=== PATIENT | female | born 1950 | race African-American/Black ===

== ENCOUNTER → 2016-03-21 | Outpatient (CLI) | payer MEDICARE, OTHER ==
[2016-03-21 12:07] LABS: HEMATOCRIT 48.7 % (36.0-47.0); HGB HCT DIFFERENCE -0.7; MEAN CORPUSCULAR HEMOGLOBIN 28.5 pg (27.0-33.4); MEAN CORPUSCULAR HGB CONC 32.8 g/dL (32.0-36.0); MEAN CORPUSCULAR VOLUME 87 fl (80-97); RED BLOOD COUNT 5.61 10^6/uL (3.72-5.28); RED CELL DISTRIBUTION WIDTH 13.3 % (11.5-14.0)
[2016-03-21 12:11] LABS: APPEARANCE,URINE CLEAR; BILIRUBIN,URINE NEGATIVE (NEGATIVE); GLUCOSE, URINE NEGATIVE (NEGATIVE); KETONES,URINE NEGATIVE (NEGATIVE); LEUKOCYTE ESTERASE,URINE MODERATE (NEGATIVE); NITRITE,URINE NEGATIVE (NEGATIVE); PROTEIN,URINE NEGATIVE (NEGATIVE); URINE SPECIFIC GRAVITY 1.014; UROBILINOGEN,URINE NEGATIVE mg/dL (<2.0)
[2016-03-21 12:29] LABS: ANION GAP 11 (5-19); BLOOD UREA NITROGEN 17 mg/dL (7-20); CALCIUM 9.1 mg/dL (8.4-10.2); CARBON DIOXIDE 30 mmol/L (22-30); CHLORIDE 105 mmol/L (98-107); CREATININE RESULT 1.16 mg/dL (0.52-1.25); GLUCOSE 119 mg/dL (75-110); POTASSIUM 4.1 mmol/L (3.6-5.0); SODIUM 146.3 mmol/L (137-145)
== END ==
LOC: LAB 11:31
PROVIDERS: ATTEND Orthopaedic Surgery
DX: Z01.810 Encounter for preprocedural cardiovascular examination (principal); Z01.811 Encounter for preprocedural respiratory examination; Z01.818 Encounter for other preprocedural examination; Z79.899 Other long term (current) drug therapy; M75.101 Unspecified rotator cuff tear or rupture of right shoulder, not specified as traumatic
CPT/HCPCS: 36415; 71020; 80048; 81001; 85027

== ENCOUNTER 2016-04-28 09:37 | Observation (INO) | payer MEDICARE, OTHER ==
[2016-04-22 10:58] LABS: HEMATOCRIT 46.8 % (36.0-47.0); HEMOGLOBIN 15.8 g/dL (12.0-15.5); HGB HCT DIFFERENCE 0.6; MEAN CORPUSCULAR HEMOGLOBIN 28.9 pg (27.0-33.4); MEAN CORPUSCULAR HGB CONC 33.9 g/dL (32.0-36.0); MEAN CORPUSCULAR VOLUME 85 fl (80-97); RED BLOOD COUNT 5.47 10^6/uL (3.72-5.28); RED CELL DISTRIBUTION WIDTH 13.1 % (11.5-14.0)
[2016-04-22 11:23] LABS: APPEARANCE,URINE CLEAR; BILIRUBIN,URINE NEGATIVE (NEGATIVE); GLUCOSE, URINE NEGATIVE (NEGATIVE); KETONES,URINE NEGATIVE (NEGATIVE); LEUKOCYTE ESTERASE,URINE NEGATIVE (NEGATIVE); NITRITE,URINE NEGATIVE (NEGATIVE); PROTEIN,URINE NEGATIVE (NEGATIVE); URINE SPECIFIC GRAVITY 1.015; UROBILINOGEN,URINE NEGATIVE mg/dL (<2.0)
[2016-04-22 11:24] LABS: ANION GAP 9 (5-19); BLOOD UREA NITROGEN 18 mg/dL (7-20); CALCIUM 9.4 mg/dL (8.4-10.2); CARBON DIOXIDE 34 mmol/L (22-30); CHLORIDE 102 mmol/L (98-107); CREATININE RESULT 1.12 mg/dL (0.52-1.25); GLUCOSE 108 mg/dL (75-110); POTASSIUM 3.5 mmol/L (3.6-5.0); SODIUM 144.9 mmol/L (137-145)
--- NOTE | 2016-04-22 12:43 | EKG REPORT ---
SEVERITY:- ABNORMAL ECG - SINUS RHYTHM NONSPECIFIC T ABNORMALITIES, INFERIOR LEADS : Confirmed by: Rita Fenton 22-Apr-2016 12:41:27
[~2016-04-28 09:37] MED LIST: BUPIVACAINE HCL 0.25 % INJ/PF (2.5 MG/1 ML) 30 ML VIAL ONE; DEXAMETHASONE SOD PHOSPHATE INJ 4 MG/1 ML VIAL ONE; EPINEPHRINE INJ/PF 1 MG/1 ML AMPULE ONE; LIDOCAINE 0.5% INJ-PF (5 MG/ML) 50 ML SDV SUBCUT PRN; LIDOCAINE 2% INJ-PF (20 MG/ML) 10 ML AMPUL ONE; ONDANSETRON HCL INJ/PF 4 MG/2 ML SDV ONE; PHENYLEPHRINE HCL INJ/PF 10 MG/1 ML SDV ONE; SUCCINYLCHOLINE CHLORIDE INJ 200 MG/10 ML VIAL ONE
[2016-04-28] MEDS: RINGERS SOLUTION,LACTATED 1,000 ML IV PRN ×2 (10:10→20:56)
[2016-04-28] MEDS ORDERED: DEXMEDETOMIDINE INJ 80 MCG/20 ML VIAL IV ONE (11:55)
[2016-04-28] MEDS ORDERED: FENTANYL CITRATE INJ/PF 250 MCG/5 ML AMPULE ONE (11:55)
[2016-04-28] MEDS ORDERED: PROPOFOL INJ 200 MG/20 ML VIAL IV ONE (11:55)
[2016-04-28] MEDS ORDERED: MIDAZOLAM 2 MG/2 ML INJ ONE (11:55)
[2016-04-28] MEDS ORDERED: EPHEDRINE SULFATE INJ 50 MG/1 ML AMPULE ONE (11:56)
[2016-04-28] MEDS: CEFAZOLIN 2 GM/D5W RTU 2 GM/50 ML RTUPB IV PRN ×2 (12:50→20:56)
[2016-04-28] MEDS ORDERED: DIPHENHYDRAMINE HCL 50 MG/ML VIAL IV PRN (13:08)
[2016-04-28] MEDS ORDERED: MEPERIDINE HCL/PF INJ 25 MG/1 ML DISP.SYRIN IV PRN (13:08)
[2016-04-28] MEDS ORDERED: FENTANYL CITRATE INJ/PF 100 MCG/2 ML AMPUL IV PRN ×3 (13:08)
[2016-04-28] MEDS ORDERED: PROMETHAZINE HCL INJ 25 MG/1 ML VIAL IV PRN ×2 (13:08)
[2016-04-28] MEDS ORDERED: MORPHINE SULFATE 10 MG/ML INJ IV PRN (13:08)
--- NOTE | 2016-04-28 15:54 | Operative Report ---
Operative Report DATE OF SURGERY: 04/28/16 PREOPERATIVE DIAGNOSIS: Right rotator cuff tear and SLAP tear POSTOPERATIVE DIAGNOSIS: Right large rotator cuff tear and tear of the long head of the biceps OPERATION: Right shoulder arthroscopic rotator cuff repair and arthroscopic biceps tenodesis SURGEON: DELIA POLK ANESTHESIA: GA TISSUE REMOVED OR ALTERED: None COMPLICATIONS: None ESTIMATED BLOOD LOSS: 20 mL INTRAOPERATIVE FINDINGS: As above PROCEDURE: IMPLANTS: Arthrex bio composite corkscrews 2, bio composite tenodesis screw, bio composite swivel locks 2 DESCRIPTION OF PROCEDURE: Patient was brought to the operating room placed in supine position. After successfully induced and intubated the patient patient was placed in the beachchair position the head and endotracheal tube was secured appropriately. The right shoulder shoulder was prepped and draped in a normal surgical fashion. A timeout was done identifying the right shoulder shoulder as the correct site. After inflating the glenohumeral joint with sterile saline solution an 11 blade was used to establish the posterior portal. The arthroscope was introduced and return of fluid was seen showing that we successfully penetrated the glenohumeral joint. With the use of spinal needle we're able to eleanor the anterior portal and using an 11 blade able to establish anterior portal. A cannula was introduced through the anterior portal. At this point diagnostic scope was done. Patient had a torn long head of the biceps that had scarred down to the torn rotator cuff tear. Patient had a full thickness tear from the supraspinatus all way to the infraspinatus tendon. A lateral portal was established 11 blade. 4.0mm shaver was introduced and was used to prepare the tear and the bone for preparation of anchor placement. Once I was satisfied with the preparation I proceeded to do a percutaneous incision adjacent to the acromion and placed my 2 anchors. I used at all and placed a hole both anterior and posterior at the articular margin. I was able to place my 2 anchors to the same protecting his hole in the anchors had good purchase and did not back out when pulled on. I then redirected my scope into the subacromial space. I did a formal bursectomy using radiofrequency ablator and shaver. I released the long head of biceps from the rotator cuff tear and pulled it through an accessory portal that I made between the anterior and lateral incision did have done previously. Through this portal I used a fiber loop and able to suture the distal tip of the biceps successfully. It measured a 6 mm tendon so I proceeded to ream a 7 mm hole and placed a 7 mm screw after seating the biceps into the hole. The interference screw had good purchase and the biceps tendon was secured in the predrilled hole. I used a arthroscopic knot pusher to then do half hitches and secure the strands over the biceps tenodesis screw. At this point I turned my attention to the rotator cuff tear. Sutures were passed through the anterior portal for proper suture management. With the use of the scorpion and I proceeded to pass the sutures through the rotator cuff tendon with proper suture management was able to pass the strands either through percutaneous hole or the anterior portal. Once I was satisfied with placement of all my sutures I then proceeded to do my arthroscopic knots. At this point the strands were used to do our lateral row. Bicomposite show out was used and the lateral aspect of the humerus was then cleaned off with a shaver and electrocautery. Once identified once I was replacement I proceeded to use my awl to do my hole. This this point the sutures were adequately tensioned and subluxed for inserted and secured securing and increasing the footprint of the rotator cuff repair. Remaining strands were cut with the arthroscopic cutter. I repeated this procedure with a second swivel lock and had nice lateral row fixation. Final pictures were taking showing my repair. At this point fluid from the shoulder was removed camera and instruments were all removed. I proceeded to close my portal sites with 3-0 nylon. Xeroform 4 x 4 dressing followed by ABDs pads and Medipore tape was applied. Patient was placed in a sling and returned to supine position where he was successfully extubated and taken to PACU in stable condition.
--- NOTE | 2016-04-28 15:56 | PDOC DISCHARGE SUMMARY ---
Discharge Summary (SDC) - Discharge Final Diagnosis: Status post right shoulder arthroscopic rotator cuff repair and arthroscopic biceps tenodesis Date of Surgery: 04/28/16 Discharge Date: 04/28/16 Condition: Good Treatment or Instructions: Patient is instructed to follow up in 10-14 days. Patient instructed to remove dressing in 4 days then can shower and apply Band- Aids as needed. Patient to wear sling for comfort but okay to remove for shower and pendulum exercises. Pendulum exercises are instructed to be done 3 times a day ideally with breakfast, lunch, dinners and showers. Patient instructed to call if there is any signs of redness or drainage fevers or chills. Prescriptions: Ondansetron HCl [Zofran 4 mg Tablet] 1 - 2 tab PO Q8H PRN #30 tablet PRN Reason: Oxycodone HCl/Acetaminophen [Percocet 5-325 mg Tablet] 1 - 2 tab PO ASDIR PRN # 60 tablet PRN Reason: Discharge Diet: As Tolerated Respiratory Treatments at Home: Deep Breathing/Coughing Discharge Activity: No Driving, No Lifting/Push/Pulling, Walk Frequently Home Care Assistance: None Needed Report the Following to Your Physician Immediately: Shortness of Breath, Vomiting, Increase in Pain, Fever over 101 Degrees, Unusual Bleeding, Redness, Drainage-Yellow, Drainage-Green, Drainage-Foul Smelling
[2016-04-28] MEDS: FENTANYL CITRATE INJ/PF 100 MCG/2 ML AMPUL ONE ×2 (15:59→16:04)
[2016-04-28] MEDS ORDERED: KETOROLAC TROMETHAMINE INJ/PF 30 MG/1 ML SDV ONE (16:27)
[2016-04-28] MEDS ORDERED: ACETAMINOPHEN 100 ML IV ONE (16:27)
[2016-04-28] MEDS: OXYCODONE-ACETAMINOPHEN 5-325 MG TABLET PO PRN ×2 (16:55→20:58)
[2016-04-28] MEDS ORDERED: OXYCODONE-ACETAMINOPHEN 5-325 MG TABLET ONE (16:55)
[2016-04-28] MEDS ORDERED: HYDROMORPHONE HCL INJ/PF 2 MG/ML AMPULE ONE (17:21)
[2016-04-29] MEDS ORDERED: OXYCODONE-ACETAMINOPHEN 5-325 MG TABLET PO PRN ×2 (04:23)
[2016-04-29 08:28] VITALS: BP 135/60
== END 2016-04-29 09:35 | disposition home or self-care (01) ==
LOC: OROUT 09:37 → 2N 18:33
PROVIDERS: ADMIT Orthopaedic Surgery; ATTEND Orthopaedic Surgery
PROC: 0LS14ZZ Reposition Right Shoulder Tendon, Percutaneous Endoscopic Approach (ICD-10-PCS; 2016-04-28)
PROC: 0LQ14ZZ Repair Right Shoulder Tendon, Percutaneous Endoscopic Approach (ICD-10-PCS; principal; 2016-04-28 11:45)
DX: M75.121 Complete rotator cuff tear or rupture of right shoulder, not specified as traumatic (principal); S46.111A Strain of muscle, fascia and tendon of long head of biceps, right arm, initial encounter; I10 Essential (primary) hypertension; Z79.899 Other long term (current) drug therapy
CPT/HCPCS: 93005; 36415 ×2; 84132; 85027; 80048; 81001; 93010; 29827; 29828; G0378 ×2; G0379; C1713 ×3; J2250; J1100; J3490 ×2; J0171; J3010 ×2; J1885; A9270 ×2; J1170; J2370; J0330; J2405; J2704; J0690; J0131; 1630

== ENCOUNTER → 2016-08-31 | Outpatient (CLI) | payer MEDICARE, OTHER ==
--- NOTE | 2016-08-31 14:59 | WOMENS IMAGING REPORT ---
EXAM DESCRIPTION: BILAT SCREENING MAMMO W/CAD COMPLETED DATE/TIME: 08/31/2016 12:34 pm REASON FOR STUDY: Z12.31, ROUTINE SCREENING MAMMO Z12.31 ENCNTR SCREEN MAMMOGRAM FOR MALIGNANT NEOP LASM OF ADORE COMPARISON: No previous available TECHNIQUE: Standard craniocaudal and mediolateral oblique views of each breast recorded using digita l acquisition. LIMITATIONS: None. FINDINGS: No masses, calcifications or architectural distortion. No areas of suspicion. Read with the assistance of CAD. .[facility] - R2 Cenova Version 1.3 .[facility] - R2 Cenova Version 1.3 .[facility] - R2 Cenova Version 2.4 .[facility] [place] Cenova Version 2.4 .[facility] - R2 Team Guide Version 9.2 IMPRESSION: NORMAL MAMMOGRAM. BIRADS 1. BREAST DENSITY: b. There are scattered areas of fibroglandular density. BIRAD: 1 NEGATIVE RECOMMENDATION: ROUTINE SCREENING COMMENT: The patient has been notified of the results by letter per SA requirements. Additional no tification policies are in place for contacting patient with suspicious or incomplete findings. Quality ID #225: The [employer] recommends an annual screening mammogram for women aged 40 years or over. This facility utilizes a reminder system to ensure that all patients receive reminder letters, and/or direct phone calls for appointments. This includes reminders for routine scr eening mammograms, diagnostic mammograms, or other Breast Imaging Interventions when appropriate. Th is patient will be placed in the appropriate reminder system. The [employer] (ACR) has developed recommendations for screening MRI of the breast s in certain patient populations, to be used in conjunction with mammography. Breast MRI surveillanc e may be appropriate for women with more than 20% lifetime risk of developing breast cancer as deter mined by genetic testing, significant family history of the disease, or history of mantle radiation f or Hodgkins Disease. ACR Practice Guidelines 2008. TECHNICAL DOCUMENTATION: FINDING NUMBER: (1) ASSESSMENT: (1) JOB ID: [id number] [employer]- All Rights Reserved
== END ==
LOC: WI 11:15
PROVIDERS: ATTEND Family Medicine
DX: Z12.31 Encounter for screening mammogram for malignant neoplasm of breast (principal)
CPT/HCPCS: 77067; G0202

== ENCOUNTER 2017-07-20 07:52 | Inpatient (IN) | payer MEDICARE, OTHER ==
[2017-07-13 13:22] LABS: APPEARANCE,URINE CLEAR; BILIRUBIN,URINE NEGATIVE (NEGATIVE); COLOR,URINE YELLOW; GLUCOSE, URINE NEGATIVE (NEGATIVE); KETONES,URINE NEGATIVE (NEGATIVE); LEUKOCYTE ESTERASE,URINE SMALL (NEGATIVE); NITRITE,URINE NEGATIVE (NEGATIVE); PROTEIN,URINE NEGATIVE (NEGATIVE); URINE SPECIFIC GRAVITY 1.016; UROBILINOGEN,URINE NEGATIVE mg/dL (<2.0)
[~2017-07-20 07:52] MED LIST changes: -BUPIVACAINE HCL 0.25 % INJ/PF (2.5 MG/1 ML) 30 ML VIAL ONE; +BUPIVACAINE INJ/PF LIPOSOME/PF 266 MG/20 ML SDV INJ PRN; +BUPIVACAINE INJ/PF LIPOSOME/PF 266 MG/20 ML SDV ONE; +CEFAZOLIN SODIUM 2 GM in DEXTROSE 5%-WATER 100 ML IV PRN; -DEXAMETHASONE SOD PHOSPHATE INJ 4 MG/1 ML VIAL ONE; -EPINEPHRINE INJ/PF 1 MG/1 ML AMPULE ONE; +IBUPROFEN 800 MG in NORMAL SALINE 250 ML IV PRN; +LACTATED RINGERS 1000 ML IV PRN; +LANSOPRAZOLE 15 MG TAB.RAP.DR PO PRN; -LIDOCAINE 2% INJ-PF (20 MG/ML) 10 ML AMPUL ONE; -ONDANSETRON HCL INJ/PF 4 MG/2 ML SDV ONE; +OXYCODONE HCL SR 10 MG TABLET PO PRN; -PHENYLEPHRINE HCL INJ/PF 10 MG/1 ML SDV ONE; -SUCCINYLCHOLINE CHLORIDE INJ 200 MG/10 ML VIAL ONE; +THROMBIN (BOVINE) 5000 UNIT EPITAXIS KIT ONE; +THROMBIN (BOVINE) TOPICAL 20000 UNIT VIAL ONE
[2017-07-20] MEDS ORDERED: FENTANYL CITRATE INJ/PF 250 MCG/5 ML AMPULE ONE (10:57)
[2017-07-20] MEDS ORDERED: MIDAZOLAM 2 MG/2 ML INJ ONE (10:57)
[2017-07-20] MEDS ORDERED: ONDANSETRON HCL INJ/PF 4 MG/2 ML SDV ONE (10:57)
[2017-07-20] MEDS ORDERED: LIDOCAINE 2% INJ-PF (20 MG/ML) 10 ML AMPUL ONE (10:57)
[2017-07-20] MEDS ORDERED: PROPOFOL INJ 200 MG/20 ML VIAL IV ONE (10:58)
[2017-07-20] MEDS ORDERED: DIPHENHYDRAMINE HCL 50 MG/ML VIAL IV PRN (11:50)
[2017-07-20] MEDS ORDERED: MEPERIDINE HCL/PF INJ 25 MG/1 ML DISP.SYRIN IV PRN (11:50)
[2017-07-20] MEDS ORDERED: MORPHINE SULFATE 10 MG/ML INJ IV PRN (11:50)
[2017-07-20] MEDS ORDERED: FENTANYL CITRATE INJ/PF 100 MCG/2 ML AMPUL IV PRN ×3 (11:50)
[2017-07-20] MEDS ORDERED: PROMETHAZINE HCL INJ 25 MG/1 ML VIAL IV PRN ×2 (11:50)
[2017-07-20] MEDS ORDERED: ONDANSETRON HCL INJ/PF 4 MG/2 ML SDV IV PRN (13:46)
[2017-07-20] MEDS ORDERED: MAG HYDROX/AL HYDROX/SIMETH SUSP 30 ML UDCUP PO PRN (13:46)
[2017-07-20] MEDS ORDERED: RINGERS SOLUTION,LACTATED 1,000 ML IV PRN (13:46)
--- NOTE | 2017-07-20 14:18 | Operative Report ---
Operative Report DATE OF SURGERY: 07/20/17 PREOPERATIVE DIAGNOSIS: Right knee degenerative joint disease POSTOPERATIVE DIAGNOSIS: Same OPERATION: Right total knee arthroplasty SURGEON: DELIA POLK ANESTHESIA: GA TISSUE REMOVED OR ALTERED: Bone cuts COMPLICATIONS: None ESTIMATED BLOOD LOSS: 50 mL INTRAOPERATIVE FINDINGS: As above PROCEDURE: Patient was brought to the operating room where she was induced and intubated in supine position. Thigh tourniquet was applied to the right lower extremity. Right lower extremity was prepped and draped in a normal sterile surgical fashion. Extremity was placed in a linn. Timeout was done identifying the right knee is a correct site. At this point Esmarch was used to exsanguinate the extremity and the tourniquet was inflated at 320 mmHg. The leg was placed in the linn and a midline incision was done over the knee. Dissection was taken down through subcutaneous tissue all way down to the quadriceps tendon and extensor mechanism and patella. A medial parapatellar approach was done to the knee. The patella was everted and the knee was flexed and we proceeded to then resect the medial lateral meniscus as well as the fat pad. ACL and PCL was also resected. A medial release was done and this allowed to sublux the tibia anteriorly. Drill was used to drill the canal and the tibia and the intramedullary guide was applied. Once it was pinned and 2 mm were measured off of the low side of the appendage and proceeded to do our initial cut. This was resected and removed and we proceeded to turn our attention to the femur where we proceeded to drill and place our intramedullary guide as well. 8 mm were cut from the distal femur. We removed the guide and proceeded to measure and go with a 4 mm size 4-in-1 cutting block. We were able to do our 4 cuts successfully and trialed a size 4 femur right which fit nicely. We proceeded to use a 4 sized tibia with a 9 mm spacer and had difficulty reducing so we then proceeded to resect another 2 mm off the tibia by reapplying the guide and taking 2 more millimeters. Another trial was attempted at this point were able to reduce it and showed good placement and fixation. Valgus and varus stressing shows stable knee ligaments. We marked the a the knee and rotational component of the tibial tray. We remove the implants and then proceeded to do our patella resection. We measured it to be 20 mm so we resected 8 mm of the patella. Left 12 mm after and measured it to confirm it. We used a 29 mm patella and drilled the peg holes in the bone. Trial components were placed and tracking was decent with no lateral subluxation. Muscle satisfied with the trial components I removed these and then did copious irrigation with pulse lavage. Cement was mixed and the actual final components were opened. We proceeded to prepare the tibial tray and did the keel portion of it. Placed my bone plugs in the canals to minimize bone marrow bleeding. Cemented the tibial tray and remove the excess cement. I then cemented the femoral component and also removed the excess cement and placed a trial spacer. I then was able to cement the patella button and remove the excess cement. Range of motion after hardening of the cement showed to be intact and no loosening. Any extra cement was then removed with an osteotome and hammer. We proceeded to place the final 9 mm polyethylene spacer and locked it in secured it in the appropriate place. Proceeded to Place Exparel on the peripheral aspect of the knee and posterior knee. Reapproximated and closed the capsule and reapproximated the patellar tendon and quadriceps tendon using #1 Vicryl suture. Thrombin was injected also. Simultaneous tissue was closed with 0 Vicryl and 2-0 Vicryl for dermis. The skin was closed with subcuticular running stitch. Steri-Strips were applied and then dressing was applied and the tourniquet was let down at 120 minutes. Drapes were removed and the patient was then extubated and sent to PACU in stable condition Implant size: right femur size 4 with a size 4 tibial tray and a 9 mm polyethylene spacer and a 29 mm patellar button
--- NOTE | 2017-07-20 14:57 | RADIOLOGY REPORT (SQ) ---
EXAM DESCRIPTION: KNEE RIGHT 2 VIEWS COMPLETED DATE/TIME: 07/20/2017 2:24 pm REASON FOR STUDY: Post OP -Long Cassette in PACU M17.11 UNILATERAL PRIMARY OSTEOARTHRITIS, RIGHT KN EE COMPARISON: None. NUMBER OF VIEWS: 2 view(s). TECHNIQUE: Digital radiographic images of the right knee post-procedure. LIMITATIONS: None. FINDINGS: BONES: No worrisome or unexpected findings post-procedure. DEVICE: Patient is status post right total knee replacement. The prosthesis appears well seated in t he distal femur and proximal tibia in the projections obtained SOFT TISSUES: No worrisome findings. Expected postoperative soft tissue changes. IMPRESSION: SATISFACTORY POSTOPERATIVE RIGHT KNEE. TECHNICAL DOCUMENTATION: JOB ID: [id number] [employer]- All Rights Reserved Reading location - IP/workstation name: [email or web address]
[2017-07-20] MEDS ORDERED: EPHEDRINE SULFATE INJ 50 MG/1 ML AMPULE ONE (15:16)
[2017-07-20] MEDS: HYDROCODONE/ACETAMINOPHEN 5-325 MG TABLET PO PRN ×2 (16:04→22:10)
--- NOTE | 2017-07-20 16:59 | Physician Advisory Note ---
Physician Advisor ProgressNote .: [facility] have reviewed [facility] medical record for this patient. Physician Advisor Statement: Status: Pt with obesity (BMI 40.1), prior Rt rotator cuff repair, HTN, gout, anxiety, who per nurse history has been limited "quite a lot" with vigorous activities & walking >1 mile, having s"ome difficulty" with 1 flight stairs, lifting/carrying groceries, bending/kneeling/stooping, but per H&P has a "normal " gait and still has little difficulty with chores like vacuuming or yardwork. - Unless attending documents a definite pre-op expectation of patient needing at least 2 MNs of post-op hospitalization, with reasons, this patient should be OUTPATIENT status until she proves she cannot go home on POD #1. - ADDENDUM at 5:22PM: Pt only able to ambulate 3-4 side steps w/PT on POD #0, with lethargy & impaired sitting/standing balance, lightheadedness/nausea. Therefore, with pt not progressing well with post-op mobility, highly unlikely to be safe for d/c home POD #1 - appropriate for INpatient status. Surgical necessity: What still needs to be documented to support need for surgery, per CMS guidelines: 1. Pain or functional disability from injury due to trauma or arthritis of the joint INTERFERES WITH these ADLs (Choose ALL that apply, give details): A. Standing B. Walking (H&P states pain worsens with walking, but that her gait is "normal" ...) C. Bathing D. Cooking E. Squatting F. Climbing stairs G. Difficulty getting up when seated a long time 2. Radiologic findings pre-op of this knee include (Choose ALL that apply, or provide a copy of the prior x-ray report): A. Subchondral cysts B. Subchondral sclerosis C. Periarticular osteophytes D. Joint space narrowing / endstage joint disease E. Joint subluxation F. AVN / osteonecrosis 3. What nonsurgical or conservative options have been tried (Choose ALL that apply): A. How long has pt tried [id number] tid? How long tramadol 50mg q6h? - Any other NSAIDS or Analgesics? (What, how much, & for how long?, or not tolerated due to ) B. How many times has she tried therapeutic injections? C. Has she used any PT? (or unable to tolerate PT due to ) D. Has she tried Assistive device use (cane, walker, brace) What? How long ? E. Flexibility and Muscle Strengthening exercises? (can be a home exercise program) F. Weight loss attempts ? - describe VS: G. 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 The above treatments have not proven successful, & this patient continues with (Choose ALL that apply): A. Pain in joint at rest (pain rating scale: __/10) B. Pain in joint with activity (pain rating scale: __/10) C. Pain in joint with weight bearing (pain rating scale: __/10) Thanks! CK
[2017-07-20] MEDS ORDERED: (PENDING PHARMACY ID) (Clonidine Hcl [Clonidine Hcl Er] 0.1 MG) PO SCH ×2 (18:00)
[2017-07-20] MEDS: RIVAROXABAN 10 MG TABLET PO SCH (18:26)
[2017-07-20] MEDS: CLONIDINE HCL 0.1 MG TABLET PO SCH (18:28)
[2017-07-20] MEDS: SENNOSIDES/DOCUSATE 8.6-50 MG 1 EACH TABLET PO SCH (18:29)
[2017-07-21] MEDS ORDERED: VANCOMYCIN HCL 1,000 MG in DEXTROSE 5%-WATER 250 ML IV ONE (01:46)
[2017-07-21] MEDS: HYDROCODONE/ACETAMINOPHEN 5-325 MG TABLET PO PRN ×2 (04:40→09:05)
[2017-07-21] MEDS: CLONIDINE HCL 0.1 MG TABLET PO SCH ×2 (05:59→17:04)
[2017-07-21 06:07] LABS: HEMOGLOBIN 12.4 g/dL (12.0-15.5); MEAN CORPUSCULAR HEMOGLOBIN 28.8 pg (27.0-33.4); MEAN CORPUSCULAR HGB CONC 33.5 g/dL (32.0-36.0); MEAN CORPUSCULAR VOLUME 86 fl (80-97); PLATELET COUNT 158 10^3/uL (150-450); RED CELL DISTRIBUTION WIDTH 13.2 % (11.5-14.0); WHITE BLOOD COUNT 14.9 10^3/uL (4.0-10.5)
[2017-07-21 06:29] LABS: ANION GAP 15 (5-19); BLOOD UREA NITROGEN 17 mg/dL (7-20); CALCIUM 8.6 mg/dL (8.4-10.2); CARBON DIOXIDE 30 mmol/L (22-30); CHLORIDE 99 mmol/L (98-107); GLUCOSE 162 mg/dL (75-110); SODIUM 143.5 mmol/L (137-145)
[2017-07-21] MEDS: PRENATAL VITAMIN W DHA CAPSULE PO SCH (09:04)
[2017-07-21] MEDS: TRIAMTERENE/HYDROCHLOROTHIAZIDE 37.5-25 MG TABLET PO SCH (09:05)
[2017-07-21] MEDS: SENNOSIDES/DOCUSATE 8.6-50 MG 1 EACH TABLET PO SCH ×2 (09:05→17:04)
[2017-07-21] MEDS: LOSARTAN POTASSIUM 50 MG TABLET PO SCH (09:05)
[2017-07-21] MEDS ORDERED: (PENDING PHARMACY ID) (Triamterene/Hydrochlorothiazid [Triamterene-Hctz 37.5-25 Mg Cp] 1 C PO SCH (10:00)
[2017-07-21] MEDS ORDERED: (PENDING PHARMACY ID) (Losartan Potassium [Losartan Potassium] 100 MG) PO SCH (10:00)
[2017-07-21] MEDS ORDERED: LOSARTAN POTASSIUM 50 MG TABLET PO SCH (10:00)
--- NOTE | 2017-07-21 12:49 | PDOC PROGRESS REPORT ---
Subjective Progress Note for:: 07/21/17 Subjective:: Patient worked with physical therapy. Complains of pain but had no issues overnight. Reason For Visit: M17.11 UNILATERAL PRIMARY OSTEOARTHRITIS, RIGHT KN Physical Exam Vital Signs: Temp Pulse Resp BP Pulse Ox 37.2 C 105 H 19 131/60 H 96 07/21/17 11:29 07/21/17 11:29 07/21/17 11:29 07/21/17 11:29 07/21/17 11:29 Intake & Output 07/20/17 07/21/17 07/22/17 06:59 06:59 06:59 Intake Total 4614 Output Total 1775 Balance 2839 Weight 99.34 kg General appearance: PRESENT: no acute distress Head exam: PRESENT: atraumatic Adult Front & Back Image: 1 - Right knee dressing is dry clean and intact. Only can do 0 of extension to about 60 of flexion. Neurovascular intact distally. No calf pain or swelling or redness. Results Laboratory Results: 07/21/17 04:54 07/21/17 04:47 07/21/17 07/21/17 04:47 04:54 WBC 14.9 H RBC 4.30 Hgb 12.4 Hct 37.0 MCV 86 MCH 28.8 MCHC 33.5 RDW 13.2 Plt Count 158 Sodium 143.5 Potassium 4.0 Chloride 99 Carbon Dioxide 30 Anion Gap 15 BUN 17 Creatinine 1.23 Est GFR ( Amer) 53 L Est GFR (Non-Af Amer) 44 L Glucose 162 H Calcium 8.6 Impressions: Knee X-Ray 07/20/17 13:49 IMPRESSION: SATISFACTORY POSTOPERATIVE RIGHT KNEE. Status: Image reviewed by me Assessment & Plan - Diagnosis (1) Total knee replacement status Qualifiers: Laterality: right Qualified Code(s): Z96.651 - Presence of right artificial knee joint Is this a current diagnosis for this admission?: Yes Plan: Patient is postop day 1 from right total knee arthroplasty. Patient is continued working with physical therapy and weight-bear as tolerated. Encouraged to work on range of motion exercises. Prescriptions have been left in the chart for Derrick Saxena Kaleigh as well as a standard walker and a bedside commode for discharge tomorrow. Anticipate discharge tomorrow or no later than Monday unless any other medical issues occurred. follow-up in 10-14 days
[2017-07-21] MEDS: RIVAROXABAN 10 MG TABLET PO SCH (17:05)
[2017-07-22] MEDS: CLONIDINE HCL 0.1 MG TABLET PO SCH ×2 (06:10→17:27)
[2017-07-22 06:27] LABS: HEMATOCRIT 33.3 % (36.0-47.0); HEMOGLOBIN 11.2 g/dL (12.0-15.5); MEAN CORPUSCULAR HEMOGLOBIN 28.8 pg (27.0-33.4); MEAN CORPUSCULAR HGB CONC 33.5 g/dL (32.0-36.0); MEAN CORPUSCULAR VOLUME 86 fl (80-97); PLATELET COUNT 134 10^3/uL (150-450); RED BLOOD COUNT 3.88 10^6/uL (3.72-5.28); RED CELL DISTRIBUTION WIDTH 12.6 % (11.5-14.0); WHITE BLOOD COUNT 18.7 10^3/uL (4.0-10.5)
[2017-07-22] MEDS: ACETAMINOPHEN 325 MG TABLET PO PRN ×2 (07:50→20:56)
[2017-07-22] MEDS: PRENATAL VITAMIN W DHA CAPSULE PO SCH (09:36)
[2017-07-22] MEDS: TRIAMTERENE/HYDROCHLOROTHIAZIDE 37.5-25 MG TABLET PO SCH (09:36)
[2017-07-22] MEDS: SENNOSIDES/DOCUSATE 8.6-50 MG 1 EACH TABLET PO SCH ×2 (09:36→17:27)
[2017-07-22] MEDS: LOSARTAN POTASSIUM 50 MG TABLET PO SCH (09:36)
[2017-07-22 13:58] LABS: APPEARANCE,URINE CLEAR; BILIRUBIN,URINE NEGATIVE (NEGATIVE); COLOR,URINE YELLOW; GLUCOSE, URINE NEGATIVE (NEGATIVE); KETONES,URINE NEGATIVE (NEGATIVE); LEUKOCYTE ESTERASE,URINE NEGATIVE (NEGATIVE); NITRITE,URINE NEGATIVE (NEGATIVE); PROTEIN,URINE NEGATIVE (NEGATIVE); URINE SPECIFIC GRAVITY 1.008; UROBILINOGEN,URINE NEGATIVE mg/dL (<2.0)
[2017-07-22] MEDS: RIVAROXABAN 10 MG TABLET PO SCH (16:09)
--- NOTE | 2017-07-22 16:15 | PDOC PROGRESS REPORT ---
Subjective Progress Note for:: 07/22/17 Subjective:: Patient states she has been doing well does have pain in her right knee. Otherwise verbalizes no complaints. Denies chest pain shortness of breath. Denies urinary symptoms. Was febrile this morning but denies fever chills or sweats. Reason For Visit: M17.11 UNILATERAL PRIMARY OSTEOARTHRITIS, RIGHT KN Physical Exam Vital Signs: Temp Pulse Resp BP Pulse Ox 99.4 F 115 H 18 107/73 92 07/22/17 12:00 07/22/17 12:00 07/22/17 12:00 07/22/17 12:00 07/22/17 12:00 Intake & Output 07/21/17 07/22/17 07/23/17 06:59 06:59 06:59 Intake Total 4614 1177 Output Total 1775 1000 Balance 2839 177 Weight 99.34 kg Musculoskeletal exam: PRESENT: other - Right knee: Ricardo bandage removed today. Moderate effusion and ecchymosis. No erythema or drainage. No calf tenderness. Negative Homans. Intact plantar flexion/dorsiflexion. No sensory deficits. Dorsalis pedis pulse 2+. Results Laboratory Results: 07/22/17 05:55 07/21/17 04:47 07/22/17 07/22/17 05:55 13:30 WBC 18.7 H RBC 3.88 Hgb 11.2 L Hct 33.3 L MCV 86 MCH 28.8 MCHC 33.5 RDW 12.6 Plt Count 134 L Urine Color YELLOW Urine Appearance CLEAR Urine pH 6.0 Ur Specific [place] 1.008 Urine Protein NEGATIVE Urine Glucose (UA) NEGATIVE Urine Ketones NEGATIVE Urine Blood SMALL H Urine Nitrite NEGATIVE Ur Leukocyte Esterase NEGATIVE Urine WBC (Auto) 3 Urine RBC (Auto) 1 Impressions: Knee X-Ray 07/20/17 13:49 IMPRESSION: SATISFACTORY POSTOPERATIVE RIGHT KNEE. Assessment & Plan - Diagnosis (1) Total knee replacement status Qualifiers: Laterality: right Qualified Code(s): Z96.651 - Presence of right artificial knee joint Is this a current diagnosis for this admission?: Yes Plan: Postop day #2 status post right total knee arthroplasty #1 postoperative fever: UA has been negative there is also evidence of leukocytosis but no definitive source. Patient verbalizes no complaints to indicate a possible source. Have encouraged ISP #2 Xarelto for DVT prophylaxis #3 physical therapy #4 anticipate discharge on 07/23/17 pending improved leukocytosis and postoperative fever.
[2017-07-22] MEDS ORDERED: ROCURONIUM BROMIDE INJ 50 MG/5 ML VIAL IV ONE (21:22)
[2017-07-23 06:35] LABS: HEMATOCRIT 31.9 % (36.0-47.0); HEMOGLOBIN 10.8 g/dL (12.0-15.5); MEAN CORPUSCULAR HEMOGLOBIN 29.2 pg (27.0-33.4); MEAN CORPUSCULAR HGB CONC 33.8 g/dL (32.0-36.0); MEAN CORPUSCULAR VOLUME 86 fl (80-97); PLATELET COUNT 152 10^3/uL (150-450); RED BLOOD COUNT 3.69 10^6/uL (3.72-5.28); RED CELL DISTRIBUTION WIDTH 12.7 % (11.5-14.0); WHITE BLOOD COUNT 17.2 10^3/uL (4.0-10.5)
[2017-07-23] MEDS: CLONIDINE HCL 0.1 MG TABLET PO SCH ×2 (06:45→17:59)
[2017-07-23] MEDS: PRENATAL VITAMIN W DHA CAPSULE PO SCH (09:18)
[2017-07-23] MEDS: TRIAMTERENE/HYDROCHLOROTHIAZIDE 37.5-25 MG TABLET PO SCH (09:18)
[2017-07-23] MEDS: LOSARTAN POTASSIUM 50 MG TABLET PO SCH (09:18)
[2017-07-23] MEDS: SENNOSIDES/DOCUSATE 8.6-50 MG 1 EACH TABLET PO SCH ×2 (09:19→17:59)
[2017-07-23] MEDS: HYDROCODONE/ACETAMINOPHEN 5-325 MG TABLET PO PRN ×2 (10:49→15:10)
--- NOTE | 2017-07-23 13:24 | PDOC PROGRESS REPORT ---
Subjective Progress Note for:: 07/23/17 Subjective:: Patient states she has been doing well, does note increase pain in her right knee. Otherwise verbalizes no complaints. Denies chest pain shortness of breath. Denies urinary symptoms. Was febrile last evening but has been afebrile since denies chills/sweats. Reason For Visit: M17.11 UNILATERAL PRIMARY OSTEOARTHRITIS, RIGHT KN Physical Exam Vital Signs: Temp Pulse Resp BP Pulse Ox 98.7 F 99 16 114/49 L 90 L 07/23/17 12:01 07/23/17 12:01 07/23/17 12:01 07/23/17 12:01 07/23/17 12:01 Intake & Output 07/22/17 07/23/17 07/24/17 06:59 06:59 06:59 Intake Total 1177 1240 Output Total 1000 700 Balance 177 540 Musculoskeletal exam: PRESENT: other - Right Knee: incision c/d/i. Small clear blister along the distal/medial aspect. Moderative effusion. No erythema /drainage. +calf tenderness. DP2/4 Results Laboratory Results: 07/23/17 06:06 07/21/17 04:47 07/22/17 07/23/17 13:30 06:06 WBC 17.2 H RBC 3.69 L Hgb 10.8 L Hct 31.9 L MCV 86 MCH 29.2 MCHC 33.8 RDW 12.7 Plt Count 152 Urine Color YELLOW Urine Appearance CLEAR Urine pH 6.0 Ur Specific [place] 1.008 Urine Protein NEGATIVE Urine Glucose (UA) NEGATIVE Urine Ketones NEGATIVE Urine Blood SMALL H Urine Nitrite NEGATIVE Ur Leukocyte Esterase NEGATIVE Urine WBC (Auto) 3 Urine RBC (Auto) 1 Impressions: Knee X-Ray 07/20/17 13:49 IMPRESSION: SATISFACTORY POSTOPERATIVE RIGHT KNEE. Assessment & Plan - Diagnosis (1) Total knee replacement status Qualifiers: Laterality: right Qualified Code(s): Z96.651 - Presence of right artificial knee joint Is this a current diagnosis for this admission?: Yes Plan: Postop day #2 status post right total knee arthroplasty #1 postoperative fever: UA has been negative there is also evidence of leukocytosis but no definitive source. Patient verbalizes no complaints to indicate a possible source. Have encouraged ISB. Will obtain Venous US, CXR and consult hospitalist for evaluateion #2 Xarelto for DVT prophylaxis #3 physical therapy #4 anticipate discharge on 07/23 or 07/24 if work-up negative
[2017-07-23 13:35] LABS: ABSOLUTE LYMPHOCYTES# (MANUAL) 1.5 10^3/uL (0.5-4.7); ABSOLUTE MONOCYTES # (MANUAL) 0.5 10^3/uL (0.1-1.4); ABSOLUTE NEUTROPHILS# (MANUAL) 15.1 10^3/uL (1.7-8.2); BASOPHILS % (MANUAL) 0 % (0-2); EOSINOPHILS % (MANUAL) 0 % (0-6); LYMPHOCYTES % (MANUAL) 9 % (13-45); MONOCYTES % (MANUAL) 3 % (3-13); PLATELET COMMENT ADEQUATE; RBC MORPHOLOGY COMMENT NORMO-CYTIC/CHROMIC; SEGMENTED NEUTROPHILS % (MAN) 88 % (42-78); TOTAL CELLS COUNTED 100
--- NOTE | 2017-07-23 13:54 | RADIOLOGY REPORT (SQ) ---
EXAM DESCRIPTION: CHEST SINGLE VIEW COMPLETED DATE/TIME: 07/23/2017 1:44 pm REASON FOR STUDY: Leukocytosis COMPARISON: 03/21/2016. EXAM PARAMETERS: NUMBER OF VIEWS: One view. TECHNIQUE: Single frontal radiographic view of the chest acquired. RADIATION DOSE: NA LIMITATIONS: None. FINDINGS: LUNGS AND PLEURA: No opacities, masses or pneumothorax. No pleural effusion. MEDIASTINUM AND HILAR STRUCTURES: No masses. Contour normal. HEART AND VASCULAR STRUCTURES: Heart normal in size. Normal vasculature. BONES: No acute findings. HARDWARE: None in the chest. OTHER: No other significant finding. IMPRESSION: NO ACUTE RADIOGRAPHIC FINDING IN THE CHEST. TECHNICAL DOCUMENTATION: JOB ID: [id number] [employer]- All Rights Reserved Reading location - IP/workstation name: [email or web address]
[2017-07-23] MEDS ORDERED: BISACODYL 5 MG TABEC PO ONE (14:19)
--- NOTE | 2017-07-23 14:30 | PDOC CONSULTATION ---
Consultation Consult Date: 07/23/17 Attending physician:: Consult reason:: Fever of unknown origin History of Present Illness Admission Date/PCP: 07/20/17 07:52 KADE SAAB MD Patient complains of: Fever History of Present Illness: SARAHI VALENTINE is a 66 year old female with past medical history of Hypertension Arthritis Gout Meds: Triamterene/HCTZ Losratan 100 mg PO daily Clonidine 0.1 mg PO Q12H Allopurinol 300 mg daily She underwent R total knee arthroplasty on 07/20/17 and developed fever of up to 101.2 F on 07/1917. The patient denies rhinorrhea/ sore throat or shortness of breath. Has a mild cough with no expectoration. No diarrhea- last bowel movement 4 days ago. Venous dopplers of LE and Chest Xray ordered by Dr. Cárdenas- pending. Not a smoker and no personal history of cancer. Past Medical History Cardiac Medical History: Reports: Hypertension Pulmonary Medical History: Reports: Pneumonia Musculoskeltal Medical History: Reports: Arthritis - BILAT LE, Gout Denies: Fibromyalgia Hematology: Reports: Anemia - when had child Past Surgical History Past Surgical History: Reports: Appendectomy, Section, Hysterectomy Social History Information Source: Patient Smoking Status: Never Smoker Frequency of Alcohol Use: None Hx Recreational Drug Use: No Drugs: None Hx Prescription Drug Abuse: No - Advance Directive Resuscitation Status: Full Code Family History Family History: Arthritis, Hypertension Parental Family History Reviewed: Yes Children Family History Reviewed: Yes Sibling(s) Family History Reviewed.: Yes Medication/Allergy Home Medications: Allopurinol [Zyloprim] 300 mg PO DAILY 07/13/17 Clonidine HCl [Clonidine HCl ER] 0.1 mg PO BID 07/13/17 Losartan Potassium 100 mg PO DAILY 07/13/17 Tramadol HCl 50 mg PO QID 07/13/17 Triamterene/Hydrochlorothiazid [Triamterene-Hctz 37.5-25 mg Cp] 1 cap PO DAILY 07/13/17 Allergies/Adverse Reactions: acetaminophen [From Percocet] Adverse Reaction (Verified 07/04/17 12:01) oxycodone [From Percocet] Adverse Reaction (Verified 07/04/17 12:01) Hallucinations Review of Systems Constitutional: PRESENT: fever(s) Eyes: ABSENT: visual disturbances Ears: ABSENT: hearing changes Nose, Mouth, and Throat: ABSENT: sore throat Cardiovascular: ABSENT: chest pain, edema Respiratory: PRESENT: cough. ABSENT: sputum Gastrointestinal: PRESENT: constipation. ABSENT: diarrhea, vomiting Genitourinary: ABSENT: dysuria Integumentary: ABSENT: rash Neurological: ABSENT: focal weakness Hematologic/Lymphatic: ABSENT: easy bleeding Physical Exam Vital Signs: Temp Pulse Resp BP Pulse Ox 98.7 F 99 16 114/49 L 90 L 07/23/17 12:01 07/23/17 12:01 07/23/17 12:01 07/23/17 12:01 07/23/17 12:01 Intake & Output 07/22/17 07/23/17 07/24/17 06:59 06:59 06:59 Intake Total 1177 1240 Output Total 1000 700 Balance 177 540 General appearance: PRESENT: no acute distress Head exam: PRESENT: normocephalic Eye exam: ABSENT: scleral icterus Ear exam: PRESENT: normal external ear exam Mouth exam: PRESENT: moist Neck exam: ABSENT: tracheal deviation Respiratory exam: PRESENT: symmetrical, unlabored. ABSENT: crackles, wheezes Cardiovascular exam: PRESENT: RRR GI/Abdominal exam: PRESENT: normal bowel sounds, soft. ABSENT: tenderness Rectal exam: PRESENT: deferred Extremities exam: PRESENT: other - R knee surgical incision. ABSENT: pedal edema Neurological exam: PRESENT: alert, awake, oriented to person, oriented to place , oriented to time, oriented to situation Psychiatric exam: PRESENT: appropriate affect Skin exam: ABSENT: rash Results Laboratory Results: 07/23/17 06:06 07/21/17 04:47 07/23/17 06:06 WBC 17.2 H RBC 3.69 L Hgb 10.8 L Hct 31.9 L MCV 86 MCH 29.2 MCHC 33.8 RDW 12.7 Plt Count 152 Seg Neutrophils % Not Reportable Lymphocytes % Not Reportable Monocytes % Not Reportable Eosinophils % Not Reportable Basophils % Not Reportable Absolute Neutrophils Not Reportable Absolute Lymphocytes Not Reportable Absolute Monocytes Not Reportable Absolute Eosinophils Not Reportable Absolute Basophils Not Reportable Impressions: Knee X-Ray 07/20/17 13:49 IMPRESSION: SATISFACTORY POSTOPERATIVE RIGHT KNEE. Chest X-Ray 07/23/17 00:00 IMPRESSION: NO ACUTE RADIOGRAPHIC FINDING IN THE CHEST. Assessment & Plan - Diagnosis (1) Fever Qualifiers: Fever type: fever of unknown origin following delivery Qualified Code(s): O86.4 - Pyrexia of unknown origin following delivery Is this a current diagnosis for this admission?: Yes Plan: Check Chest Xray, blood cultures, lower extremity venous dopplers. UA normal. Incentive spirometer ordered (2) Hypertension Is this a current diagnosis for this admission?: Yes Plan: Continue Clonidine, Losartan reduced to 50mg for low-normal BP. Hold HCTZ/Triamterene. (3) Total knee replacement status Qualifiers: Laterality: right Qualified Code(s): Z96.651 - Presence of right artificial knee joint Is this a current diagnosis for this admission?: Yes Plan: Post op day 3. Management per primary service. (4) DVT prophylaxis Is this a current diagnosis for this admission?: Yes Plan: Xarelto - Time Time Spent: 50 to 70 Minutes
[2017-07-23] MEDS ORDERED: DOCUSATE SODIUM 100 MG CAPSULE PO SCH (15:00)
--- NOTE | 2017-07-23 16:54 | XCELERA REPORT ---
[address] [address] Lower Extremity Venous Evaluation Name: SARAHI VALENTINE Age: 66 yrs Gender: Female : 1950 Patient Status: Inpatient Patient Location: [address] [place] [address] Study Date: 07/23/2017 01:55 PM Procedure: Color flow and duplex imaging bilaterally of the veins of the lower extremities as well as the Common Femoral veins. Reason For Study: Evaluate for DVT Ordering Physician: KATHRIN VELAZQUEZ Performed By: Boyd Holly Right Sided Venous Evaluation Femoral and Peroneal veins not visualized. Otherwise normal vessel filling wall to wall, compression and augmentation as well as Colour flow down to the infrageniculate veins. Left Sided Venous Evaluation Normal vessel filling wall to wall, compression and augmentation as well as Colour flow down to the infrageniculate veins. Interpretation Summary No duplex evidence of DVT or obstruction in the bilateral lower extremities. Some limitations on right due to recent surgery. : KATHRIN VELAZQUEZ > Farshad Reese
[2017-07-23] MEDS: RIVAROXABAN 10 MG TABLET PO SCH (17:59)
[2017-07-24] MEDS: HYDROCODONE/ACETAMINOPHEN 5-325 MG TABLET PO PRN ×3 (04:40→15:24)
[2017-07-24] MEDS: CLONIDINE HCL 0.1 MG TABLET PO SCH (05:06)
[2017-07-24 06:36] LABS: ABSOLUTE EOSINOPHILS # (AUTO) 0.1 10^3/uL (0.0-0.6); ABSOLUTE LYMPHOCYTES (AUTO) 1.6 10^3/uL (0.5-4.7); ABSOLUTE MONOCYTES (AUTO) 1.4 10^3/uL (0.1-1.4); ABSOLUTE NEUT (AUTO) 8.8 10^3/uL (1.7-8.2); BASOPHILS % (AUTO) 0.3 % (0-2); EOSINOPHILS % (AUTO) 0.6 % (0-6); HEMATOCRIT 28.6 % (36.0-47.0); HEMOGLOBIN 9.6 g/dL (12.0-15.5); LYMPHOCYTES % (AUTO) 13.6 % (13-45); MEAN CORPUSCULAR HGB CONC 33.4 g/dL (32.0-36.0); MEAN CORPUSCULAR VOLUME 87 fl (80-97); MONOCYTES % (AUTO) 11.5 % (3-13); PLATELET COUNT 185 10^3/uL (150-450); RED BLOOD COUNT 3.31 10^6/uL (3.72-5.28); RED CELL DISTRIBUTION WIDTH 12.8 % (11.5-14.0); TOTAL CELLS COUNTED % (AUTO) 100 %; WHITE BLOOD COUNT 11.9 10^3/uL (4.0-10.5)
[2017-07-24 07:03] LABS: ALANINE AMINOTRANSFERASE 58 U/L (9-52); ALBUMIN 2.8 g/dL (3.5-5.0); ALKALINE PHOSPHATASE 68 U/L (38-126); ANION GAP 11 (5-19); ASPARTATE AMINO TRANSFERASE 97 U/L (14-36); BILIRUBIN,DIRECT 0.3 mg/dL (0.0-0.4); BILIRUBIN,TOTAL 0.9 mg/dL (0.2-1.3); BLOOD UREA NITROGEN 24 mg/dL (7-20); CALCIUM 8.7 mg/dL (8.4-10.2); CARBON DIOXIDE 33 mmol/L (22-30); CHLORIDE 99 mmol/L (98-107); CHOLESTEROL 129.93 mg/dL (0-200); GLUCOSE 166 mg/dL (75-110); PHOSPHORUS 3.6 mg/dL (2.5-4.5); POTASSIUM 3.4 mmol/L (3.6-5.0); SODIUM 142.6 mmol/L (137-145); TOTAL PROTEIN 5.3 g/dL (6.3-8.2); TRIGLYCERIDES 224 mg/dL (<150)
[2017-07-24 07:14] LABS: DIRECT LDL 62 mg/dL (<100)
[2017-07-24 07:16] LABS: VLDL CHOLESTEROL 44.8 mg/dL (10-31)
[2017-07-24] MEDS ORDERED: LOSARTAN POTASSIUM 50 MG TABLET PO SCH (10:00)
[2017-07-24] MEDS: PRENATAL VITAMIN W DHA CAPSULE PO SCH (10:18)
[2017-07-24] MEDS: SENNOSIDES/DOCUSATE 8.6-50 MG 1 EACH TABLET PO SCH (10:19)
[2017-07-24] MEDS ORDERED: BISACODYL 5 MG TABEC PO ONE (10:43)
--- NOTE | 2017-07-24 14:03 | PDOC PROGRESS REPORT ---
Subjective Progress Note for:: 07/24/17 Subjective:: No complaints feels well. No fever or cough or dysuria Chest Xray normal. No DVT on venous dopplers of b/l lower extremities. Leukocytosis improving. Incentive spirometry ordered. Laxatives ordered for constipation. Reason For Visit: M17.11 UNILATERAL PRIMARY OSTEOARTHRITIS, RIGHT KN Physical Exam Vital Signs: Temp Pulse Resp BP Pulse Ox 98.9 F 93 16 115/56 L 94 07/24/17 07:57 07/24/17 07:57 07/24/17 07:57 07/24/17 07:57 07/24/17 07:57 Intake & Output 07/23/17 07/24/17 07/25/17 06:59 06:59 06:59 Intake Total 1240 1278 Output Total 700 1605 Balance 540 -327 General appearance: PRESENT: no acute distress Head exam: PRESENT: normocephalic Eye exam: ABSENT: scleral icterus Ear exam: PRESENT: normal external ear exam Mouth exam: PRESENT: moist Neck exam: ABSENT: tracheal deviation Respiratory exam: PRESENT: symmetrical, unlabored. ABSENT: crackles, wheezes Cardiovascular exam: PRESENT: RRR GI/Abdominal exam: PRESENT: normal bowel sounds, soft. ABSENT: tenderness Rectal exam: PRESENT: deferred Extremities exam: ABSENT: calf tenderness Neurological exam: PRESENT: alert, awake, oriented to person, oriented to place , oriented to time, oriented to situation Psychiatric exam: PRESENT: appropriate affect, normal mood Skin exam: ABSENT: rash Results Laboratory Results: 07/24/17 05:53 07/24/17 05:53 07/24/17 07/24/17 05:53 05:53 WBC 11.9 H RBC 3.31 L Hgb 9.6 L Hct 28.6 L MCV 87 MCH 29.0 MCHC 33.4 RDW 12.8 Plt Count 185 Seg Neutrophils % 74.0 Lymphocytes % 13.6 Monocytes % 11.5 Eosinophils % 0.6 Basophils % 0.3 Absolute Neutrophils 8.8 H Absolute Lymphocytes 1.6 Absolute Monocytes 1.4 Absolute Eosinophils 0.1 Absolute Basophils 0.0 Sodium 142.6 Potassium 3.4 L Chloride 99 Carbon Dioxide 33 H Anion Gap 11 BUN 24 H Creatinine 1.44 H Est GFR ( Amer) 44 L Est GFR (Non-Af Amer) 36 L Glucose 166 H Calcium 8.7 Phosphorus 3.6 Magnesium 2.2 Total Bilirubin 0.9 AST 97 H ALT 58 H Alkaline Phosphatase 68 Total Protein 5.3 L Albumin 2.8 L Triglycerides 224 H Cholesterol 129.93 LDL Cholesterol Direct 62 VLDL Cholesterol 44.8 H HDL Cholesterol 16 L Impressions: Knee X-Ray 07/20/17 13:49 IMPRESSION: SATISFACTORY POSTOPERATIVE RIGHT KNEE. Chest X-Ray 07/23/17 00:00 IMPRESSION: NO ACUTE RADIOGRAPHIC FINDING IN THE CHEST. Assessment & Plan - Diagnosis (1) Fever Qualifiers: Fever type: fever of unknown origin following delivery Qualified Code(s): O86.4 - Pyrexia of unknown origin following delivery Is this a current diagnosis for this admission?: Yes Plan: likely post op fever of unknown origin. Resolved. (2) Hypertension Is this a current diagnosis for this admission?: Yes Plan: Continue Clonidine, Losartan reduced to 50mg for low-normal BP. Hold HCTZ/Triamterene. (3) Total knee replacement status Qualifiers: Laterality: right Qualified Code(s): Z96.651 - Presence of right artificial knee joint Is this a current diagnosis for this admission?: Yes Plan: Post op day 4. Management per primary service. (4) DVT prophylaxis Is this a current diagnosis for this admission?: Yes Plan: Xarelto (5) Constipation Is this a current diagnosis for this admission?: Yes Plan: Laxatives - Time Time Spent with patient: 25-34 minutes - Plan Summary Plan Summary: Fever resolved. leukocytosis improving. No evidence of infection or DVT. Thank you for this consult. Will sign off. Please call with questions.
[2017-07-24 14:44] VITALS: BP 101/65
[2017-07-24] MEDS ORDERED: ONDANSETRON HCL INJ/PF 4 MG/2 ML SDV IV PRN (15:00)
[2017-07-24] MEDS ORDERED: LACTULOSE SYRUP 20 GM/30 ML UDCUP PO SCH (18:00)
--- NOTE | 2017-08-25 15:03 | PDOC DISCHARGE SUMMARY ---
General - Admit/Disc Date/PCP Admission Date/Primary Care Provider: 07/20/17 07:52 KADE SAAB MD Discharge Date: 07/24/17 - Discharge Diagnosis (1) Total knee replacement status Is this a current diagnosis for this admission?: Yes - Additional Information Resuscitation Status: Full Code Discharge Diet: Regular Discharge Activity: Balance Activity w/Rest, No Driving, Keep Legs Elevated, No Lifting/Push/Pulling, Slowly Increase Activity, Walk Frequently Home Medications: Allopurinol [Zyloprim] 300 mg PO DAILY 07/13/17 Clonidine HCl [Clonidine HCl ER] 0.1 mg PO BID 07/13/17 Losartan Potassium 100 mg PO DAILY 07/13/17 Tramadol HCl 50 mg PO QID 07/13/17 Triamterene/Hydrochlorothiazid [Triamterene-Hctz 37.5-25 mg Cp] 1 cap PO DAILY 07/13/17 History of Present Illness Patient complains of: Right knee pain History of Present Illness: 67-year-old female who was being treated for conservative treatment for her right osteoarthritis finally had failed conservative measures and had agreed to proceed with right total knee arthroplasty. Risk and benefits were discussed and the patient agreed and consented and underwent right total knee arthroplasty on 07/20/2017. Hospital Course Hospital Course: Patient underwent right total knee arthroplasty on 07/20/2017. Surgery was uneventful. No complications. Patient was admitted for pain control and rehab. On postoperative day 1 patient's pain was being kept under control as best as possible and therapy was started. Patient was set up for home health and to be discharged on postop day 2. Unfortunately patient developed some spiking fever that required a a workup that included DVT ultrasound and a chest x-ray. Thankfully on postop day 3 fever was resolved and his x-ray and ultrasound were negative for any evidence of pathology that included DVT or atelectasis or pneumonia. Patient pain was well under control and on 07/24/2017 patient finally was discharged home with home health set up and instructed to follow-up in 10-14 days in the office. Instructed to weight-bear as tolerated. Instructed to remove the dressing and shower. Physical Exam Vital Signs: Temp Pulse Resp BP Pulse Ox 37.2 C 93 16 101/65 94 07/24/17 14:34 07/24/17 14:34 07/24/17 14:34 07/24/17 14:34 07/24/17 14:34 General appearance: PRESENT: no acute distress Eye exam: PRESENT: EOMI Ear exam: PRESENT: normal external ear exam Neck exam: ABSENT: lymphadenopathy Respiratory exam: PRESENT: symmetrical, unlabored. ABSENT: accessory muscle use , tachypnea, wheezes Cardiovascular exam: PRESENT: RRR Pulses: PRESENT: +2 pedal pulses bilateral Vascular exam: PRESENT: normal capillary refill Neurological exam: PRESENT: alert, awake, oriented to person, oriented to place , oriented to time Results Laboratory Results: 07/24/17 05:53 07/24/17 05:53 Impressions: Knee X-Ray 07/20/17 13:49 IMPRESSION: SATISFACTORY POSTOPERATIVE RIGHT KNEE. Chest X-Ray 07/23/17 00:00 IMPRESSION: NO ACUTE RADIOGRAPHIC FINDING IN THE CHEST. Status: Image reviewed by me Qualifiers - * PATIENT BEING DISCHARGED WITH ANY OF THE FOLLOWING DIAGNOSIS: No Plan Discharge Plan: 67-year-old female status post right total knee arthroplasty. Patient progressed with physical therapy and was worked up for spiking fever. Thankfully images and labs showed no evidence of a DVT or PE. Patient was successfully then discharged on 07/24/2017 2 start home health physical therapy and follow-up in the office in 10-14 days. Okay to shower daily and remove dressing. Okay to do range of motion as tolerated and weight-bear as tolerated.
== END 2017-07-24 15:54 | disposition home health service (06) | DRG 470 ==
LOC: INOR 07:52 → 4S 15:46
PROVIDERS: ADMIT Orthopaedic Surgery; ATTEND Orthopaedic Surgery
PROC: 0SRC0J9 Replacement of Right Knee Joint with Synthetic Substitute, Cemented, Open Approach (ICD-10-PCS; principal; 2017-07-20 10:00)
DX: M17.11 Unilateral primary osteoarthritis, right knee (principal); I10 Essential (primary) hypertension; F41.9 Anxiety disorder, unspecified; R50.82 Postprocedural fever; K59.00 Constipation, unspecified; M10.9 Gout, unspecified; R05 Cough; Z98.891 History of uterine scar from previous surgery; Z79.899 Other long term (current) drug therapy; Z90.49 Acquired absence of other specified parts of digestive tract; Z90.710 Acquired absence of both cervix and uterus; Z82.61 Family history of arthritis; Z82.49 Family history of ischemic heart disease and other diseases of the circulatory system; Z88.6 Allergy status to analgesic agent
CPT/HCPCS: 01402; 36415; 71045; 80048; 80053; 80061; 81001; 83036; 83735; 84100; 84132; 85025; 85027; 87040; 88305; 88311; 93970; 94799; C9290; G8987-GO; G8988-GO; J0690; J1741; J2250; J2405; J2704; J3010; J3370; J3490; J7050; J7060; J7120

== ENCOUNTER 2018-06-06 21:38 | Observation (INO) | payer MEDICARE, OTHER ==
[2018-06-06] MEDS ORDERED: ASPIRIN 81 MG TABLET, CHEWABLE PO ONE (22:23)
--- NOTE | 2018-06-06 22:25 | ER Document Report ---
ED Medical Screen (RME) - General Chief Complaint: Chest Pain Stated Complaint: CHEST PAIN Time Seen by Provider: 06/06/18 22:23 Primary Care Provider: KADE SAAB MD [Primary Care Provider] - Follow up as needed Notes: Patient is a 67-year-old female history of hypertension presents to the emergency department with chest pains. States it is in the center of her chest and sometimes moves under her left breast and also under her right breast. Patient states it is sharp in nature. States she has had this pain intermittently for the last week but it is gotten constant recently which is why she presents to the emergency room. Patient's denying any coronary artery disease, follow-up with a epidemiology investigator or stress test, cardiac catheterization. GENERAL: Alert, interacts well. No acute distress. LUNGS: Clear to auscultation bilaterally, no wheezes, rales, or rhonchi. No respiratory distress. HEART: Regular rate and rhythm. No murmur SKIN: Warm, dry, normal turgor. No rashes or lesions noted. I have greeted and performed a rapid initial assessment of this patient. A comprehensive ED assessment and evaluation of the patient, analysis of test results and completion of the medical decision making process will be conducted by additional ED providers. TRAVEL OUTSIDE OF THE [place] IN LAST 30 DAYS: No - Related Data Allergies/Adverse Reactions: acetaminophen [From Percocet] Adverse Reaction (Verified 07/04/17 12:01) oxycodone [From Percocet] Adverse Reaction (Verified 07/04/17 12:01) Hallucinations Past Medical History - Past Medical History Cardiac Medical History: Reports: Hx Hypertension Denies: Hx Atrial Fibrillation, Hx Congestive Heart Failure, Hx Coronary Artery Disease, Hx Heart Attack, Hx Hypercholesterolemia, Hx Peripheral Vascular Disease, Hx Pulmonary Embolism, Hx Heart Murmur Pulmonary Medical History: Reports: Hx Pneumonia Denies: Hx Asthma, Hx Bronchitis, Hx COPD, Hx Respiratory Failure, Hx Sleep Apnea, Hx Tuberculosis Neurological Medical History: Denies: Hx Cerebrovascular Accident, Hx Seizures Endocrine Medical History: Denies: Hx Diabetes Mellitus Type 2, Hx Hyperthyroidism, Hx Hypothyroidism Renal/ Medical History: Denies: Hx Kidney Stones Malignancy Medical History: Denies: Hx Leukemia, Hx Lung Cancer GI Medical History: Denies: Hx Gastroesophageal Reflux Disease, Hx Hepatitis Musculoskeltal Medical History: Reports Hx Arthritis - BILAT LE, Denies Hx Fibromyalgia, Reports Hx Gout, Denies Hx Muscular Dystrophy Psychiatric Medical History: Denies: Hx Bipolar Disorder, Hx Depression, Hx Post Traumatic Stress Disorder Traumatic Medical History: Denies: Hx Fractures Infectious Medical History: Denies: Hx Hepatitis, Hx HIV, Hx MRSA Past Surgical History: Reports: Hx Appendectomy, Hx Cardiac Catheterization, Hx Section, Hx Hysterectomy. Denies: Hx Bowel Surgery, Hx Cholecystectomy, Hx Coronary Artery Bypass Graft, Hx Gastric Bypass Surgery, Hx Herniorrhaphy, Hx Mastectomy, Hx Pacemaker, Hx Tonsillectomy, Hx Tubal Ligation - Immunizations Hx Diphtheria, Pertussis, Tetanus Vaccination: No History of Influenza Vaccine for 12/2016 - 05/2017 Season: No Physical Exam - Vital signs Vitals: Temp Pulse Resp BP Pulse Ox 98.6 F 81 16 164/84 H 99 06/06/18 21:52 06/06/18 21:52 06/06/18 21:52 06/06/18 21:52 06/06/18 21:52 Course - Vital Signs Vital signs: Temp Pulse Resp BP Pulse Ox 98.6 F 81 16 164/84 H 99 06/06/18 21:52 06/06/18 21:52 06/06/18 21:52 06/06/18 21:52 06/06/18 21:52 Doctor's Discharge - Discharge Referrals: KADE SAAB MD [Primary Care Provider] - Follow up as needed
--- NOTE | 2018-06-06 22:54 | RADIOLOGY REPORT (SQ) ---
EXAM DESCRIPTION: XR CHEST 1 VIEW COMPLETED DATE/TME: 06/06/2018 22:23 CLINICAL HISTORY: 67 years, Female, CP COMPARISON: 07/23/2017 chest NUMBER OF VIEWS: 1 TECHNIQUE: Portable chest LIMITATIONS: None. FINDINGS: Heart size is normal. Mild ectasia thoracic aorta. Lungs are clear. No pneumothorax IMPRESSION: No acute cardiopulmonary process copyright 2010 [employer]- All Rights Reserved
[2018-06-07 01:06] LABS: ABSOLUTE EOSINOPHILS # (AUTO) 0.1 10^3/uL (0.0-0.6); ABSOLUTE LYMPHOCYTES (AUTO) 2.3 10^3/uL (0.5-4.7); ABSOLUTE MONOCYTES (AUTO) 0.7 10^3/uL (0.1-1.4); ABSOLUTE NEUT (AUTO) 4.3 10^3/uL (1.7-8.2); BASOPHILS % (AUTO) 0.5 % (0-2); EOSINOPHILS % (AUTO) 1.4 % (0-6); HEMATOCRIT 47.2 % (36.0-47.0); HEMOGLOBIN 16.2 g/dL (12.0-15.5); LYMPHOCYTES % (AUTO) 30.9 % (13-45); MEAN CORPUSCULAR HGB CONC 34.3 g/dL (32.0-36.0); MEAN CORPUSCULAR VOLUME 85 fl (80-97); MONOCYTES % (AUTO) 9.6 % (3-13); PLATELET COUNT 176 10^3/uL (150-450); RED BLOOD COUNT 5.57 10^6/uL (3.72-5.28); SEGMENTED NEUTROPHILS % (AUTO) 57.6 % (42-78); TOTAL CELLS COUNTED % (AUTO) 100 %; WHITE BLOOD COUNT 7.5 10^3/uL (4.0-10.5)
--- NOTE | 2018-06-07 01:26 | ER Document Report ---
ED General - General Chief Complaint: Chest Pain Stated Complaint: CHEST PAIN Time Seen by Provider: 06/06/18 22:23 Primary Care Provider: KADE SAAB MD [Primary Care Provider] - Follow up as needed Notes: Patient is [age]-year-old female presents with complaint of chest pain is substernal. Said it was intermittent for several days but then today became constant. It is worse when she gets up in walks. She does get a bit dyspnea associate with it. No nausea. No vomiting. Patient is substernal sometimes radiates into the left chest. She says she has left arm pain but says this is chronic and nothing new. No pain into the back. No fevers. No vomiting. No nausea. No history of coronary disease. She does have history of hypertension. She was recently told by her doctor that her blood sugars also start to run high. She denies ever having a stress test or cardiac cath. TRAVEL OUTSIDE OF THE [place] IN LAST 30 DAYS: No - Related Data Allergies/Adverse Reactions: acetaminophen [From Percocet] Adverse Reaction (Verified 07/04/17 12:01) oxycodone [From Percocet] Adverse Reaction (Verified 07/04/17 12:01) Hallucinations Past Medical History - Social History Smoking Status: Never Smoker Frequency of alcohol use: None Drug Abuse: None Family History: Arthritis, Hypertension Patient has suicidal ideation: No Patient has homicidal ideation: No - Past Medical History Cardiac Medical History: Reports: Hx Hypertension Denies: Hx Atrial Fibrillation, Hx Congestive Heart Failure, Hx Coronary A rtery Disease, Hx Heart Attack, Hx Hypercholesterolemia, Hx Peripheral Vascular Disease, Hx Pulmonary Embolism, Hx Heart Murmur Pulmonary Medical History: Reports: Hx Pneumonia Denies: Hx Asthma, Hx Bronchitis, Hx COPD, Hx Respiratory Failure, Hx Sleep Apnea, Hx Tuberculosis Neurological Medical History: Denies: Hx Cerebrovascular Accident, Hx Seizures Endocrine Medical History: Denies: Hx Diabetes Mellitus Type 2, Hx Hy perthyroidism, Hx Hypothyroidism Renal/ Medical History: Denies: Hx Kidney Stones, Hx Peritoneal Dialysis Malignancy Medical History: Denies: Hx Leukemia, Hx Lung Cancer GI Medical History: Denies: Hx Gastroesophageal Reflux Disease, Hx Hepatitis Musculoskeletal Medical History: Reports Hx Arthritis - BILAT LE, Denies Hx Fibromyalgia, Reports Hx Gout, Denies Hx Muscular Dystrophy Psychiatric Medical History: Denies: Hx Bipolar Disorder, Hx Depression, Hx Post Traumatic Stress Disorder Traumatic Medical History: Denies: Hx Fractures Infectious Medical History: Denies: Hx Hepatitis, Hx HIV, Hx MRSA Past Surgical History: Reports: Hx Appendectomy, Hx Cardiac Catheterization, Hx Section, Hx Hysterectomy. Denies: Hx Bowel Surgery, Hx Cholecystectomy, Hx Coronary Artery Bypass Graft, Hx Gastric Bypass Surgery, Hx Herniorrhaphy, Hx Mastectomy, Hx Pacemaker, Hx Tonsillectomy, Hx Tubal Ligation - Immunizations Hx Diphtheria, Pertussis, Tetanus Vaccination: No Review of Systems - Review of Systems Notes: My Normal Review Basic REVIEW OF SYSTEMS: CONSTITUTIONAL : Denies fever, chills, or sweats. Denies recent illness. Cardiovascular: Chest pain RESPIRATORY: Denies cough, cold, or chest congestion. Denies shortness of breath, difficulty breathing, or wheezing. GASTROINTESTINAL: Denies abdominal pain. Denies nausea, vomiting, or diarrhea. GENITOURINARY: Denies difficulty urinating, painful urination, burning, frequency, or blood in urine. MUSCULOSKELETAL: Denies neck or back pain or joint pain or swelling. SKIN: Denies rash or skin lesions. NEUROLOGICAL: Denies altered mental status or loss of consciousness. Denies headache. Denies weakness or paralysis or loss of use of either side. Denies problems with gait or speech. Denies sensory or motor loss. ALL OTHER SYSTEMS REVIEWED AND NEGATIVE. Physical Exam - Vital signs Vitals: Temp Pulse Resp BP Pulse Ox 98.6 F 81 16 164/84 H 99 06/06/18 21:52 06/06/18 21:52 06/06/18 21:52 06/06/18 21:52 06/06/18 21:52 - Notes Notes: General Appearance: Well nourished, alert, cooperative, no acute distress, no obvious discomfort. Well-appearing. Vitals: reviewed, See vital signs table. Head: no swelling or tenderness to the head Eyes: PERRL, EOMI, Conjuctiva clear Mouth: No decreasd moisture Chest wall: No significant reproduction to palpation of chest wall Neck: Supple, no neck tenderness, No thyromegaly Lungs: No wheezing, No rales, No rhonci, No accessory muscle use, good air exchange bilaterally. Heart: Normal rate, Regular rythm, No murmur, no rub Abdomen: Normal BS, soft, No rigidity, No abdominal tenderness, No guarding, no rebound, no abdominal masses, no organomegaly Extremities: good pulses in all extremities, no swelling or tenderness in the extremities, no edema. Skin: warm, dry, appropriate color, no rash Neuro: speech clear, oriented x 3, normal affect, responds appropriately to questions. Course - Re-evaluation Re-evalutation: 06/07/18 03:12 Patient is having improvement with the nitro. She says she still has a small amount of chest pain. I did speak with the hospitalist, Dr. Bacon, requested to give the patient asmall dose of morphine. She is allergic to oxycodone and therefore will trial just a very low dose of morphine to see if this helps her. She currently looks well clinically. She is agreeable to admission. I feel patient is appropriate for admission being that she has multiple risk factors for coronary disease and is having chest pain that was not proven with nitro. Her heart score is 4. Dictation of this chart was performed using voice recognition software; therefore, there may be some unintended grammatical errors. - Vital Signs Vital signs: Temp Pulse Resp BP Pulse Ox 98.6 F 81 19 150/81 H 95 06/06/18 21:52 06/06/18 21:52 06/07/18 03:01 06/07/18 03:01 06/07/18 03:04 - Laboratory Result Diagrams: 06/07/18 00:55 06/07/18 00:55 Laboratory results interpreted by me: 06/07/18 06/07/18 00:55 00:55 RBC 5.57 H Hgb 16.2 H Hct 47.2 H Carbon Dioxide 32 H BUN 30 H Creatinine 1.37 H Est GFR ( Amer) 47 L Est GFR (Non-Af Amer) 38 L Glucose 123 H Creatine Kinase 208 H - EKG Interpretation by Me Additional EKG results interpreted by me: 06/07/18 01:26 EKG is reviewed and interpreted by me. EKG shows sinus rhythm with a rate of [address] segment elevation or depression. No ischemic T wave inversions. WA interval, QRS duration, QT intervals are within normal range. Old EKG for comparison is from April 22, 2016. Discharge - Discharge Clinical Impression: Chest pain Qualifiers: Chest pain type: unspecified Qualified Code(s): R07.9 - Chest pain, unspecified Condition: Stable Disposition: ADMITTED OBSERVATION Admitting Provider: Hospitalist Unit Admitted: Telemetry Referrals: KADE SAAB MD [Primary Care Provider] - Follow up as needed
[2018-06-07 01:43] LABS: ALANINE AMINOTRANSFERASE 16 U/L (9-52); ALBUMIN 3.8 g/dL (3.5-5.0); ALKALINE PHOSPHATASE 65 U/L (38-126); ANION GAP 6 (5-19); ASPARTATE AMINO TRANSFERASE 22 U/L (14-36); BILIRUBIN,DIRECT 0.3 mg/dL (0.0-0.4); BILIRUBIN,TOTAL 0.4 mg/dL (0.2-1.3); BLOOD UREA NITROGEN 30 mg/dL (7-20); CALCIUM 9.6 mg/dL (8.4-10.2); CARBON DIOXIDE 32 mmol/L (22-30); CHLORIDE 103 mmol/L (98-107); CREATINE KINASE 208 U/L (30-135); GLUCOSE 123 mg/dL (75-110); SODIUM 140.9 mmol/L (137-145); TOTAL PROTEIN 6.9 g/dL (6.3-8.2)
[2018-06-07 01:54] LABS: CREATINE KINASE MB 1.76 ng/mL (<4.55)
[2018-06-07] MEDS ORDERED: NITROGLYCERIN 2% OINTMENT 1 GM PACKET TP ONE (01:56)
[2018-06-07] MEDS ORDERED: ASPIRIN 325 MG TABLET PO ONE (01:56)
[2018-06-07 01:57] LABS: TROPONIN I < 0.012 ng/mL
[2018-06-07] MEDS ORDERED: MORPHINE SULFATE 10 MG/ML INJ IV ONE (03:11)
[2018-06-07] MEDS ORDERED: NORMAL SALINE 1000 ML 1,000 ML IV PRN (03:14)
--- NOTE | 2018-06-07 05:16 | PDOC H&P ---
History of Present Illness Admission Date/PCP: 06/07/18 03:21 KADE SAAB MD Patient complains of: chest discomfort History of Present Illness: SARAHI VALENTINE is a 67 year old woman with 2 week history of intermittant chest discomfort. Sometimes sub sternal pressure and sometimes a sharper feeling, sometimes with left shoulder pain, one episode of emesis, no dyspnea. Has never had NC, no known diabetes. She states that within the past few weeks she was moving some heavy objects. Feeling better now with 2/10 CP after NTG paste and one mg morphine. Admitted to hospitalist under obs for CP eval. Past Medical History Cardiac Medical History: Reports: Hypertension, Other Denies: Atrial Fibrillation, Congestive Heart Failure, Coronary Artery Disease, Myocardial Infarction, Hyperlipidema, Peripheral Vascular Disease, Pulmonary Embolism, Heart Murmur Pulmonary Medical History: Reports: Pneumonia Denies: Asthma, Bronchitis, Chronic Obstructive Pulmonary Disease (COPD), Respiratory Failure, Sleep Apnea, Tuberculosis EENT Medical History: Reports: None Neurological Medical History: Denies: Ischemic CVA, Seizures Endocrine Medical History: Denies: Diabetes Mellitus Type 2, Hyperthyroidism, Hypothyroidism Renal/ Medical History: Denies: Chronic Kidney Disease Malignancy Medical History: Denies: Leukemia, Lung Cancer GI Medical History: Denies: Gastroesophageal Reflux Disease, Hepatitis Musculoskeltal Medical History: Reports: Arthritis - BILAT LE, Gout Denies: Fibromyalgia Psychiatric Medical History: Denies: Bipolar Disorder, Depression, Post Traumatic Stress Disorder Traumatic Medical History: Reports: None Hematology: Reports: Anemia - when had child Denies: Hemophilia, Sickle Cell Disease Infectious Medical History: Denies: HIV, Methicillin-Resistant Staph Aureus Past Surgical History Past Surgical History: Reports: Appendectomy, Cardiac Catheterization, Section, Hysterectomy Denies: Amputation, Cholecystectomy, Coronary Artery Bypass Graft, Gastric Bypass Surgery, Herniorrhaphy, Mastectomy, Pacemaker, Tonsillectomy, Tubal Ligation Social History Information Source: Patient, [facility] Records Lives with: Family, Spouse/Significant other Smoking Status: Never Smoker Frequency of Alcohol Use: None Hx Recreational Drug Use: No Drugs: None Hx Prescription Drug Abuse: No Past Social History Note: Lives in [place] with and middle adult son. Also has a yonger son and older son. Very independent. 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 - Advance Directive Resuscitation Status: Full Code Surrogate healthcare decision maker:: 2 oldest sons Family History Family History: Arthritis, Hypertension Parental Family History Reviewed: Yes Children Family History Reviewed: Yes - oldest with HTN and CHF Sibling(s) Family History Reviewed.: Yes Medication/Allergy Home Medications: Allopurinol [Zyloprim] 300 mg PO DAILY 07/13/17 Clonidine HCl [Clonidine HCl ER] 0.1 mg PO BID 07/13/17 Losartan Potassium 100 mg PO DAILY 07/13/17 Tramadol HCl 50 mg PO QID 07/13/17 Triamterene/Hydrochlorothiazid [Triamterene-Hctz 37.5-25 mg Cp] 1 cap PO DAILY 07/13/17 Allergies/Adverse Reactions: acetaminophen [From Percocet] Adverse Reaction (Verified 07/04/17 12:01) oxycodone [From Percocet] Adverse Reaction (Verified 07/04/17 12:01) Hallucinations Review of Systems Eyes: ABSENT: visual disturbances Ears: ABSENT: hearing changes Nose, Mouth, and Throat: ABSENT: mouth pain, sore throat Cardiovascular: PRESENT: chest pain. ABSENT: dyspnea on exertion, edema Respiratory: ABSENT: hemoptysis, sputum Gastrointestinal: PRESENT: diarrhea, vomiting. ABSENT: abdominal pain, coffee ground emesis Genitourinary: ABSENT: hematuria Integumentary: ABSENT: erythema, lesions Neurological: ABSENT: frequent falls, syncope, vertigo Psychiatric: ABSENT: anxiety, depression Endocrine: ABSENT: cold intolerance, heat intolerance Hematologic/Lymphatic: ABSENT: easy bleeding Physical Exam Vital Signs: Temp Pulse Resp BP Pulse Ox 98.6 F 81 22 H 141/72 H 94 06/06/18 21:52 06/06/18 21:52 06/07/18 03:46 06/07/18 03:46 06/07/18 03:46 Intake & Output 06/05/18 06/06/18 06/07/18 06:59 06:59 06:59 Weight 101.1 kg General appearance: PRESENT: no acute distress, cooperative Head exam: PRESENT: atraumatic, normocephalic Eye exam: ABSENT: conjunctival injection, scleral icterus Ear exam: PRESENT: normal external ear exam Mouth exam: PRESENT: moist, tongue midline Neck exam: PRESENT: full ROM Respiratory exam: PRESENT: clear to auscultation debora, unlabored. ABSENT: rales, rhonchi, tachypnea, wheezes Cardiovascular exam: PRESENT: RRR. ABSENT: systolic murmur Pulses: PRESENT: normal radial pulses, normal dorsalis pedis pul Vascular exam: PRESENT: normal capillary refill GI/Abdominal exam: PRESENT: normal bowel sounds, soft. ABSENT: distended, tenderness Rectal exam: PRESENT: deferred Gentrourinary exam: ABSENT: indwelling catheter Extremities exam: ABSENT: pedal edema Musculoskeletal exam: PRESENT: ambulatory. ABSENT: deformity Neurological exam: PRESENT: alert, awake, oriented to person, oriented to place, oriented to situation, CN II-XII grossly intact Psychiatric exam: PRESENT: appropriate affect. ABSENT: anxious, depressed Skin exam: PRESENT: dry, intact, warm Results Laboratory Results: 06/07/18 00:55 06/07/18 00:55 06/07/18 06/07/18 00:55 00:55 WBC 7.5 RBC 5.57 H Hgb 16.2 H Hct 47.2 H MCV 85 MCH 29.0 MCHC 34.3 RDW 13.0 Plt Count 176 Seg Neutrophils % 57.6 Lymphocytes % 30.9 Monocytes % 9.6 Eosinophils % 1.4 Basophils % 0.5 Absolute Neutrophils 4.3 Absolute Lymphocytes 2.3 Absolute Monocytes 0.7 Absolute Eosinophils 0.1 Absolute Basophils 0.0 Sodium 140.9 Potassium 4.0 Chloride 103 Carbon Dioxide 32 H Anion Gap 6 BUN 30 H Creatinine 1.37 H Est GFR ( Amer) 47 L Est GFR (Non-Af Amer) 38 L Glucose 123 H Calcium 9.6 Total Bilirubin 0.4 AST 22 ALT 16 Alkaline Phosphatase 65 Total Protein 6.9 Albumin 3.8 06/07/18 06/07/18 00:55 00:55 Creatine Kinase 208 H CK-MB (CK-2) 1.76 Troponin I < 0.012 Impressions: Chest X-Ray 06/06/18 22:23 IMPRESSION: No acute cardiopulmonary process copyright 2011 [employer]- All Rights Reserved Assessment and Plan - Diagnosis (1) Chest pain Qualifiers: Chest pain type: unspecified Qualified Code(s): R07.9 - Chest pain, unspecified Is this a current diagnosis for this admission?: Yes Plan: Not clear etiology but she did have TTP over anterior chest wall makig this unlikley cardiac, though she has had a few types of pain so perhaps she has a MS and cardiac component. Cardiac enzymes ordered, neg x 1, admit to tele, start her antihypertesnives, keep NPO in the case stress test indicated. WOuld like to see her CP free, if she tolerates the morphine will administer anther dose if its helping, cont NTG paste for now. (2) Gout Is this a current diagnosis for this admission?: No Plan: cont her allopurinol (3) Hypertension Is this a current diagnosis for this admission?: Yes Plan: start her antihypertensives as she will tolerate. Vitals q 4 hrs. Goal is normotensive. - Time Time Spent with patient: 35 or more minutes - Plan Summary Plan Summary: FUll code, DVT prophylaxis heparin 5000 units sq q 8 hrs.
[2018-06-07] MEDS: HEPARIN SOD (PORCINE) 5,000 UNIT/ML 1 ML SYRINGE SUBCUT SCH ×2 (07:29→15:35)
--- NOTE | 2018-06-07 08:14 | EKG REPORT ---
SEVERITY:- BORDERLINE ECG - SINUS RHYTHM BORDERLINE T ABNORMALITIES, INFERIOR LEADS : Confirmed by: Pj Larsen MD 07-Jun-2018 08:14:11
[2018-06-07 08:16] LABS: CREATINE KINASE MB 1.45 ng/mL (<4.55)
[2018-06-07 08:24] LABS: TROPONIN I < 0.012 ng/mL
[2018-06-07] MEDS ORDERED: CLONIDINE HCL 0.1 MG TABLET PO SCH (11:00)
[2018-06-07] MEDS ORDERED: LOSARTAN POTASSIUM 50 MG TABLET PO SCH (11:00)
[2018-06-07] MEDS ORDERED: TRIAMTERENE/HYDROCHLOROTHIAZIDE 37.5-25 MG TABLET PO SCH (11:30)
[2018-06-07] MEDS ORDERED: ALLOPURINOL 300 MG TABLET PO SCH (11:30)
[2018-06-07 14:54] LABS: CREATINE KINASE MB 1.41 ng/mL (<4.55)
[2018-06-07 14:58] LABS: TROPONIN I < 0.012 ng/mL
[2018-06-07 16:34] VITALS: BP 133/60
--- NOTE | 2018-06-08 20:18 | PDOC DISCHARGE SUMMARY ---
General - Admit/Disc Date/PCP Admission Date/Primary Care Provider: 06/07/18 03:21 KADE SAAB MD Discharge Date: 06/07/18 - Discharge Diagnosis (1) Chest pain Is this a current diagnosis for this admission?: Yes Summary: The patient has experienced intermittent chest discomfort over the last 2 weeks. Her troponin series was completely negative. The EKG was unremarkable. She had been exerting herself physically I will last several weeks. There was some tenderness to palpation on the sternum. I believe this is musculoskeletal pain. She will follow-up with her primary care provider. I will defer to Dr. Saab for additional testing. (2) Hypertension Is this a current diagnosis for this admission?: Yes Summary: Continue clonidine, losartan and triamterene hydrochlorothiazide. Follow a cardiac diet. (3) Severe obesity (BMI 35.0-39.9) with comorbidity Is this a current diagnosis for this admission?: Yes Summary: The obesity is certainly a cardiac risk factor along with her hypertension. Suggest a strict cardiac diet and engaging in regular exercise. (4) Gout Is this a current diagnosis for this admission?: No Summary: No acute symptoms for gout. Continue allopurinol at its current dose. - Additional Information Resuscitation Status: Full Code Discharge Diet: As Tolerated, Cardiac Discharge Activity: Activity As Tolerated, Balance Activity w/Rest Home Medications: Allopurinol [Zyloprim 300 mg Tablet] 300 mg PO DAILY 06/07/18 Clonidine HCl [Catapres] 0.1 mg PO Q12 06/07/18 Losartan Potassium 100 mg PO DAILY 06/07/18 Triamterene/Hydrochlorothiazid [Triamterene-Hctz 37.5-25 mg Cp] 1 tab PO DAILY 06/07/18 History of Present Illness Patient complains of: Chest discomfort History of Present Illness: SARAHI VALENTINE is a 67 year old female who had intermittent chest discomfort over the 2 weeks prior to admission. The discomfort was substernal at times. Occasionally it felt sharp. It would sometimes occur on the left shoulder as well. She has had some increased physical activity over the last several weeks. She reported some relief with nitroglycerin. The patient will be admitted to observation status to rule out acute coronary syndrome. Hospital Course Hospital Course: Unremarkable hospital course. Serial troponins were negative x3. The patient was discharged home and I will defer to Dr. Saab with regard to pursuing additional investigations such as stress testing. Physical Exam Vital Signs: Temp Pulse Resp BP Pulse Ox 98.2 F 70 15 133/60 H 100 06/07/18 15:59 06/07/18 15:59 06/07/18 15:59 06/07/18 15:59 06/07/18 15:59 Intake & Output 06/07/18 06/08/18 06/09/18 06:59 06:59 06:59 Intake Total 1000 Balance 1000 Weight 98.7 kg General appearance: PRESENT: no acute distress, morbidly obese, well-developed Head exam: PRESENT: normocephalic Eye exam: PRESENT: conjunctiva pink. ABSENT: scleral icterus Ear exam: PRESENT: normal external ear exam Respiratory exam: PRESENT: clear to auscultation debora, symmetrical, unlabored. ABSENT: chest wall tenderness, rales, rhonchi, wheezes Cardiovascular exam: PRESENT: RRR, +S1, +S2, systolic murmur - 2/6 GI/Abdominal exam: PRESENT: normal bowel sounds, soft. ABSENT: distended, tenderness Rectal exam: PRESENT: deferred Gentrourinary exam: ABSENT: indwelling catheter Extremities exam: ABSENT: pedal edema Musculoskeletal exam: PRESENT: ambulatory Neurological exam: PRESENT: alert, awake, oriented to person, oriented to place, oriented to time, oriented to situation, CN II-XII grossly intact Psychiatric exam: PRESENT: appropriate affect. ABSENT: agitated, anxious Focused psych exam: ABSENT: delusional, restlessness Results Laboratory Results: 06/07/18 00:55 06/07/18 00:55 06/07/18 06/07/18 06/07/18 00:55 00:55 06:40 Creatine Kinase 208 H 158 H CK-MB (CK-2) 1.76 Troponin I < 0.012 06/07/18 06/07/18 06/07/18 06:40 13:56 13:56 Creatine Kinase 151 H CK-MB (CK-2) 1.45 1.41 Troponin I < 0.012 < 0.012 Impressions: Chest X-Ray 06/06/18 22:23 IMPRESSION: No acute cardiopulmonary process copyright 2010 [employer]- All Rights Reserved Qualifiers - * PATIENT BEING DISCHARGED WITH ANY OF THE FOLLOWING DIAGNOSIS: No Plan Discharge Plan: Discharge to home. Defer to Dr. Saab for additional testing. Time Spent: Greater than 30 Minutes
== END 2018-06-07 18:26 | disposition home or self-care (01) ==
LOC: ER 21:38 → EH 06-07 03:21 → 4N 06-07 05:14
PROVIDERS: ADMIT Internal Medicine; ATTEND Internal Medicine
DX: R07.89 Other chest pain (principal); I10 Essential (primary) hypertension; E66.01 Morbid (severe) obesity due to excess calories; Z68.39 Body mass index [BMI] 39.0-39.9, adult; M10.9 Gout, unspecified; R11.10 Vomiting, unspecified; R19.7 Diarrhea, unspecified; R06.00 Dyspnea, unspecified; Z79.899 Other long term (current) drug therapy; Z90.49 Acquired absence of other specified parts of digestive tract; Z82.49 Family history of ischemic heart disease and other diseases of the circulatory system; Z90.710 Acquired absence of both cervix and uterus; Z88.8 Allergy status to other drugs, medicaments and biological substances
CPT/HCPCS: 93005; 99285; 96374; 36415; 82553; 82550; 85025; 80053; 84484; 71045; 93010; A9270 ×6; J2270; J7030; G0378

== ENCOUNTER → 2018-09-18 | Outpatient (CLI) | payer MEDICARE, OTHER ==
--- NOTE | 2018-09-18 11:17 | WOMENS IMAGING REPORT ---
EXAM DESCRIPTION: BILAT SCREENING MAMMO W/CAD COMPLETED DATE/TIME: 09/18/2018 10:42 am REASON FOR STUDY: Z12.31 ENCOUNTER FOR SCREENING MAMMOGRAM FOR MALIGNANT NEOPLASM OF BREAST Z12.31 ENCNTR SCREEN MAMMOGRAM FOR MALIGNANT NEOPLASM OF ADORE COMPARISON: 2017 EXAM PARAMETERS: Standard craniocaudal and mediolateral oblique views of each breast recorded using digital acquisition. Read with the assistance of CAD. .[facility] - [employer] Version 9.2 LIMITATIONS: None. FINDINGS: No suspicious masses, suspicious calcifications or architectural distortion. No areas of c oncern. IMPRESSION: Negative MAMMOGRAM. BIRADS 1 BREAST DENSITY: a. The breasts are almost entirely fatty. BIRAD: ASSESSMENT: 1 NEGATIVE RECOMMENDATION: ROUTINE SCREENING COMMENT: The patient has been notified of the results by letter per MQSA requirements. Additional no tification policies are in place for contacting patient with suspicious or incomplete findings. Quality ID #[id number]: The [employer] recommends an annual screening mammogram for women aged 40 years or over. This facility utilizes a reminder system to ensure that all patients receive reminder letters, and/or direct phone calls for appointments. This includes reminders for routine scr eening mammograms, diagnostic mammograms, or other Breast Imaging Interventions when appropriate. Th is patient will be placed in the appropriate reminder system. TECHNICAL DOCUMENTATION: FINDING NUMBER: (1) ASSESSMENT: (1) JOB ID: [id number] [employer]- All Rights Reserved Reading location - IP/workstation name: [email or web address]
== END ==
LOC: WI 10:13
PROVIDERS: ATTEND Family Medicine
DX: Z12.31 Encounter for screening mammogram for malignant neoplasm of breast (principal)
CPT/HCPCS: 77067